=== PATIENT | female | born 1995 | race Caucasian/White ===

== ENCOUNTER 2016-08-30 20:33 | Emergency (ER) | payer MEDICAID | END 2016-08-30 23:54 | disposition home or self-care (01) | LOC: ER 20:33 | CPT/HCPCS: 36415; 80053; 81001; 83690; 84703; 85025; 86901 ==

== ENCOUNTER 2016-09-15 13:23 | Emergency (ER) | payer MEDICAID | END 2016-09-15 17:40 | disposition home or self-care (01) | LOC: ER 13:23 | DX: O26.892 Other specified pregnancy related conditions, second trimester (principal); Z3A.19 19 weeks gestation of pregnancy | CPT/HCPCS: 76815; 81003; 84112; 87491; 87591; 87800 ==